=== PATIENT | female | born 1965 | race African-American/Black ===

== ENCOUNTER 2017-01-31 14:30 | Emergency (ER) | payer SELFPAY ==
[~2017-01-31] VITALS: Ht 162.6 cm; Wt 60.0 kg
[2017-01-31 14:34] VITALS: BP 169/94
[2017-01-31] MEDS ORDERED: CARI350T27 PO (14:38)
[2017-01-31] MEDS ORDERED: METF500T4 PO (14:38)
[2017-01-31] MEDS ORDERED: LISI2.5T47 PO (14:38)
[2017-01-31] MEDS ORDERED: ATOR10TA69 PO (14:38)
== END 2017-01-31 15:13 | disposition left against medical advice (07) ==
LOC: ER 14:42
DX: R52 Pain, unspecified (principal); Z53.21 Procedure and treatment not carried out due to patient leaving prior to being seen by health care provider

== ENCOUNTER 2017-02-05 18:09 | Emergency (ER) | payer SELFPAY ==
[~2017-02-05] VITALS: Ht 157.5 cm; Wt 64.0 kg
[~2017-02-05 18:09] MED LIST: ATOR10TA69 PO; CARI350T27 PO; LISI2.5T47 PO; METF500T4 PO
[2017-02-05 18:56] VITALS: BP 154/74
[2017-02-05] MEDS ORDERED: KETOROLAC 60MG/2ML VIAL IM ONE (19:00)
== END 2017-02-05 19:30 | disposition home or self-care (01) ==
LOC: ER 18:09
DX: G89.29 Other chronic pain (principal); M54.5 Low back pain; E11.9 Type 2 diabetes mellitus without complications; I10 Essential (primary) hypertension; E78.00 Pure hypercholesterolemia, unspecified; Z88.1 Allergy status to other antibiotic agents; Z88.2 Allergy status to sulfonamides
CPT/HCPCS: 96372; 99283; J1885

== ENCOUNTER 2020-12-06 08:18 | Emergency (ER) | payer BC, OTHER ==
[~2020-12-06] VITALS: Ht 165.1 cm; Wt 73.0 kg
[~2020-12-06 08:18] MED LIST changes: +METF-414 PO; -METF500T4 PO
[2020-12-06] MEDS ORDERED: MORPHINE SULFATE 4 MG/ML CPJ (NOT FOR IM USE) IV STA (08:59)
[2020-12-06] MEDS ORDERED: ONDANSETRON HCL 4MG/2ML INJ IV STA (08:59)
[2020-12-06] MEDS ORDERED: SODIUM CHLORIDE 0.9% 1,000 ML IV ONE (09:00)
[2020-12-06 09:45] LABS: BASOPHILS % 0.3 % (0.0-2.0); EOSINOPHILS % 2.5 % (0.0-5.0); HEMATOCRIT. 38.6 % (36.0-48.0); LYMPHOCYTES % 25.9 % (20.0-50.0); MEAN CORPUSCULAR HEMOGLOBIN 28.5 pg (28.0-32.0); MEAN CORPUSCULAR VOLUME 84.8 fL (81.0-99.0); MEAN PLATELET VOLUME 9.5 fl (7.4-10.4); MONOCYTES % 6.8 % (2.0-8.0); NEUTROPHILS % 64.5 % (40.0-76.0); PLATELET 216 x1000/uL (130-400); RED BLOOD CELL COUNT 4.55 mill/uL (4.2-5.4); RED CELL DISTRIBUTION WIDTH 16.2 % (11.6-14.6)
[2020-12-06 09:52] LABS: CHLORIDE 108 mEq/L (98-107)
[2020-12-06 09:54] LABS: PROTHROMBIN TIME 10.4 sec (9.6-11.0)
[2020-12-06 10:01] LABS: CREATINE KINASE 160 IU/L (26-192)
[2020-12-06 10:03] LABS: CREATINE KINASE MB FRACTION 2.2 ng/mL (0.5-3.6)
[2020-12-06] MEDS ORDERED: KETOROLAC 30MG/ML VIAL IV ONE ×2 (12:30)
[2020-12-06] MEDS ORDERED: IOHEXOL-300 100 ML BOTTLE ONE (12:32)
[2020-12-06] MEDS ORDERED: IBUP-2029 MT (13:09)
[2020-12-06] MEDS ORDERED: METH500T6 MT (13:09)
[2020-12-06 13:14] VITALS: BP 150/71
== END 2020-12-06 13:51 | disposition home or self-care (01) ==
LOC: ER 08:18
DX: M54.2 Cervicalgia (principal); R07.89 Other chest pain; R10.13 Epigastric pain; E78.00 Pure hypercholesterolemia, unspecified; I10 Essential (primary) hypertension; E11.9 Type 2 diabetes mellitus without complications; V49.9XXA Car occupant (driver) (passenger) injured in unspecified traffic accident, initial encounter; Y93.89 Activity, other specified; Z88.2 Allergy status to sulfonamides; Z98.890 Other specified postprocedural states; Z79.899 Other long term (current) drug therapy; Y92.89 Other specified places as the place of occurrence of the external cause; Y99.8 Other external cause status
CPT/HCPCS: 36415; 70450; 71045; 71260; 72125; 73552; 73562; 73590; 74177; 80053; 82550; 82553; 83690; 85025; 85610; 93005; 96361; 96374; 96375; 99285; J1885; J2270; J2405; J7030; Q9967